=== PATIENT | male | born 1935 | race Caucasian/White ===

== ENCOUNTER 2017-07-01 12:51 | Inpatient (IN) | payer BC, OTHER ==
[2017-07-01] VITALS (10 sets, daily range): BP systolic 93–116
[~2017-07-01] VITALS: Ht 185.4 cm; Wt 106.6 kg
[~2017-07-01 12:51] MED LIST: ATENOLOL PO; PANT20TA2 PO
[2017-07-01] MEDS ORDERED: ASPIRIN 325 MG TABLET PO ONE ×2 (13:15→13:45)
[2017-07-01 13:23] LABS: BASOPHILS % (AUTO) 0.4 % (0.0-2.0); EOSINOPHILS # (AUTO) 0.1 K/uL (0.0-0.4); EOSINOPHILS % (AUTO) 0.9 % (0.0-4.0); HEMOGLOBIN 16.4 g/dL (14.0-18.0); LYMPHOCYTES # (AUTO) 2.1 K/uL (1.0-5.5); LYMPHOCYTES % (AUTO) 21.8 % (20.5-51.5); MEAN CORPUSCULAR HEMOGLOBIN 31 pg (27-31); MEAN CORPUSCULAR HGB CONC 33 % (32-36); MEAN CORPUSCULAR VOLUME 93 fL (79.0-98.0); MONOCYTES # (AUTO) 0.9 K/uL (0.0-1.0); NEUTROPHILS # (AUTO) 6.3 K/uL (1.8-7.7); NEUTROPHILS % (AUTO) 66.9 % (40.0-70.0); PLATELET COUNT (AUTO) 156 K/uL (130-430); RED BLOOD CELL COUNT(AUTO) 5.38 MIL/uL (4.2-6.2); RED CELL DISTRIBUTION WIDTH 13.8 % (9.0-15.0); WHITE BLOOD COUNT (AUTO) 9.4 K/uL (4.8-10.8)
[2017-07-01 13:37] LABS: INR 1.2 (0.80-1.20); PROTHROMBIN TIME 12.5 SECS (9.5-12.5)
[2017-07-01 13:38] LABS: ANION GAP 11 (5-15); CHLORIDE 102 mmol/L (98-107); CREATININE 1.69 mg/dL (0.55-1.30); GLUCOSE 196 mg/dL (70-99); POTASSIUM 3.7 mmol/L (3.5-5.1); SODIUM SERUM 136 mmol/L (136-145); UREA NITROGEN, BLOOD 22 mg/dL (8-21)
[2017-07-01 13:42] LABS: ALANINE AMINOTRANSFERASE 24 U/L (12-78); ALBUMIN 3.5 g/dL (3.4-4.8); ASPARTATE AMINOTRANSFERASE 14 U/L (10-37); CHOLESTEROL 141 mg/dL (<200); CREATINE KINASE, TOTAL 47 U/L (39-308); HDL CHOLESTEROL 46 mg/dL (>45); LDL CHOLESTEROL 76 mg/dL (<100); TOTAL BILIRUBIN 1.3 mg/dL (0.0-1.0); TOTAL PROTEIN, SERUM 7.6 g/dL (6.4-8.3); TRIGLYCERIDES 132 mg/dL (30-150)
[2017-07-01 14:07] LABS: BILIRUBIN,URINE 1+ (NEGATIVE); BLOOD, URINE NEGATIVE (NEGATIVE); CLARITY/URINE HAZY (CLEAR); COLOR,URINE AMBER (YELLOW); GLUCOSE,URINE NEGATIVE (NEGATIVE); KETONES,URINE TRACE (NEGATIVE); LEUKOCYTE ESTERASE ,URINE 1+ (NEGATIVE); NITRITE, URINE NEGATIVE (NEGATIVE); PROTEIN URINE TRACE (NEGATIVE)
[2017-07-01 15:07] LABS: RBC,URINE NONE SEEN /HPF (0-3)
[2017-07-01 15:08] LABS: BACTERIA,URINE FEW /HPF (None Seen); COARSE GRANULAR CASTS,URINE 0-10 /LPF (None Seen); HYALINE CASTS, URINE 30-50 /LPF (None Seen); MUCUS,URINE 1+ /LPF (None Seen)
[2017-07-01] MEDS ORDERED: LIP10 PO (15:41)
[2017-07-01] MEDS ORDERED: cefTRIAXone 1 GM in D5W 50 ML IV ONE (15:45)
[2017-07-01] MEDS ORDERED: cefTRIAXone 1 GM VIAL ONE (15:51)
[2017-07-01 16:00] LABS: BLOOD GAS PH 7.424 (7.350-7.450)
[2017-07-01 16:01] LABS: ABG TOTAL HEMOGLOBIN 14.7 G/dL (12.0-18.0); BLOOD GAS BASE EXCESS -0.5 mmol/L (-3.0-3.0); BLOOD GAS COHb% 1.2 % (0.5-1.5); BLOOD GAS HHB 3.1 % (0.0-6.0); BLOOD O2Hb% 95.5 % (94.0-97.0)
[2017-07-01] MEDS ORDERED: NACL 0.9% 1,000 ML IV ONE (16:15)
[2017-07-01] MEDS ORDERED: *HEPARIN PER PHARMACY XX ONE (16:15)
[2017-07-01] MEDS: NACL 0.9% 1,000 ML IV SCH (18:33)
[2017-07-01] MEDS ORDERED: HEPARIN 25,000 UNITS in 250 ML PREMIX IV PRN (20:00)
[2017-07-01] MEDS ORDERED: HEPARIN SODIUM,PORCINE 5000 UNITS/ML VIAL IVP ONE (20:00)
[2017-07-01] MEDS ORDERED: HEPARIN SODIUM,PORCINE 3000 UNITS/0.6 ML BOLUS IVP PRN (20:00)
[2017-07-01] MEDS ORDERED: HEPARIN SODIUM,PORCINE 2000 UNITS/0.4 ML BOLUS IVP PRN (20:00)
[2017-07-01 21:31] LABS: ANION GAP 7 (5-15); CALCIUM 8.4 mg/dL (8.4-11.0); CHLORIDE 108 mmol/L (98-107); CREATININE 1.38 mg/dL (0.55-1.30); GLUCOSE 122 mg/dL (70-99); POTASSIUM 3.8 mmol/L (3.5-5.1); SODIUM SERUM 141 mmol/L (136-145); UREA NITROGEN, BLOOD 24 mg/dL (8-21)
[2017-07-02] VITALS (19 sets, daily range): BP systolic 90–144
[2017-07-02] MEDS: NACL 0.9% 1,000 ML IV SCH ×3 (01:20→18:00)
[2017-07-02 07:10] LABS: BASOPHILS % (AUTO) 0.6 % (0.0-2.0); EOSINOPHILS # (AUTO) 0.1 K/uL (0.0-0.4); EOSINOPHILS % (AUTO) 2.6 % (0.0-4.0); HEMATOCRIT 40.4 % (36-54); HEMOGLOBIN 13.7 g/dL (14.0-18.0); LYMPHOCYTES # (AUTO) 1.6 K/uL (1.0-5.5); LYMPHOCYTES % (AUTO) 28.9 % (20.5-51.5); MEAN CORPUSCULAR HEMOGLOBIN 32 pg (27-31); MEAN CORPUSCULAR HGB CONC 34 % (32-36); MEAN CORPUSCULAR VOLUME 94 fL (79.0-98.0); MONOCYTES # (AUTO) 0.5 K/uL (0.0-1.0); NEUTROPHILS # (AUTO) 3.2 K/uL (1.8-7.7); NEUTROPHILS % (AUTO) 58.9 % (40.0-70.0); PLATELET COUNT (AUTO) 112 K/uL (130-430); RED BLOOD CELL COUNT(AUTO) 4.31 MIL/uL (4.2-6.2); RED CELL DISTRIBUTION WIDTH 13.9 % (9.0-15.0); WHITE BLOOD COUNT (AUTO) 5.4 K/uL (4.8-10.8)
[2017-07-02] MEDS: PANTOPRAZOLE SODIUM 40 MG TAB PO SCH (08:28)
[2017-07-02] MEDS: ASPIRIN 81 MG TAB.CHEW PO SCH (08:28)
[2017-07-02] MEDS ORDERED: ACETYLCYSTEINE 20% 800 MG/4 ML VIAL (ORAL) PO SCH (09:00)
[2017-07-02] MEDS: cefTRIAXone 1 GM in D5W 50 ML IV SCH (09:54)
[2017-07-02 14:02] LABS: CALCIUM 7.9 mg/dL (8.4-11.0); CREATININE 1.22 mg/dL (0.55-1.30); GLUCOSE 113 mg/dL (70-99); UREA NITROGEN, BLOOD 21 mg/dL (8-21)
[2017-07-02 14:13] LABS: ALANINE AMINOTRANSFERASE 15 U/L (12-78); ALBUMIN 2.2 g/dL (3.4-4.8); ASPARTATE AMINOTRANSFERASE 16 U/L (10-37); TOTAL BILIRUBIN 0.5 mg/dL (0.0-1.0); TOTAL PROTEIN, SERUM 6.2 g/dL (6.4-8.3)
[2017-07-02 14:19] LABS: ANION GAP 7 (5-15); CHLORIDE 108 mmol/L (98-107); POTASSIUM 4.7 mmol/L (3.5-5.1); SODIUM SERUM 142 mmol/L (136-145)
[2017-07-02] MEDS ORDERED: IOHEXOL 350 mgI/mL, 150 ML INFUS..BTL IV ONE (19:04)
[2017-07-03 00:56] VITALS: BP_SYST 104
[2017-07-03 04:20] VITALS: BP_SYST 105
[2017-07-03 04:24] VITALS: BP_SYST 112
[2017-07-03 06:24] LABS: BASOPHILS % (AUTO) 0.5 % (0.0-2.0); EOSINOPHILS # (AUTO) 0.2 K/uL (0.0-0.4); EOSINOPHILS % (AUTO) 2.5 % (0.0-4.0); HEMATOCRIT 43.1 % (36-54); HEMOGLOBIN 14.3 g/dL (14.0-18.0); LYMPHOCYTES # (AUTO) 1.3 K/uL (1.0-5.5); LYMPHOCYTES % (AUTO) 20.7 % (20.5-51.5); MEAN CORPUSCULAR HEMOGLOBIN 31 pg (27-31); MEAN CORPUSCULAR HGB CONC 33 % (32-36); MEAN CORPUSCULAR VOLUME 94 fL (79.0-98.0); MONOCYTES # (AUTO) 0.5 K/uL (0.0-1.0); MONOCYTES % (AUTO) 8.1 % (1.7-9.3); NEUTROPHILS # (AUTO) 4.2 K/uL (1.8-7.7); NEUTROPHILS % (AUTO) 68.2 % (40.0-70.0); PLATELET COUNT (AUTO) 121 K/uL (130-430); RED BLOOD CELL COUNT(AUTO) 4.58 MIL/uL (4.2-6.2); RED CELL DISTRIBUTION WIDTH 13.9 % (9.0-15.0); WHITE BLOOD COUNT (AUTO) 6.2 K/uL (4.8-10.8)
[2017-07-03 06:33] LABS: ALANINE AMINOTRANSFERASE 18 U/L (12-78); ALBUMIN 2.6 g/dL (3.4-4.8); ANION GAP 5 (5-15); ASPARTATE AMINOTRANSFERASE 21 U/L (10-37); CHLORIDE 110 mmol/L (98-107); GLUCOSE 89 mg/dL (70-99); POTASSIUM 4.2 mmol/L (3.5-5.1); SODIUM SERUM 139 mmol/L (136-145); TOTAL BILIRUBIN 0.5 mg/dL (0.0-1.0); UREA NITROGEN, BLOOD 17 mg/dL (8-21)
[2017-07-03 08:27] VITALS: BP_SYST 122
[2017-07-03] MEDS: cefTRIAXone 1 GM in D5W 50 ML IV SCH (08:46)
[2017-07-03] MEDS: ASPIRIN 81 MG TAB.CHEW PO SCH (09:58)
[2017-07-03] MEDS: PANTOPRAZOLE SODIUM 40 MG TAB PO SCH (09:58)
[2017-07-03] MEDS ORDERED: NITR-85 PO (10:30)
[2017-07-03 12:33] VITALS: BP_SYST 134
[2017-07-03 12:42] VITALS: BP_SYST 124
== END 2017-07-03 13:40 | disposition home or self-care (01) | DRG 871 ==
LOC: SED 12:51 → SIC 16:05 → STU 07-02 16:41
DX: A41.9 Sepsis, unspecified organism (principal); N17.0 Acute kidney failure with tubular necrosis; J44.1 Chronic obstructive pulmonary disease with (acute) exacerbation; N39.0 Urinary tract infection, site not specified; J44.9 Chronic obstructive pulmonary disease, unspecified; I95.9 Hypotension, unspecified; N28.9 Disorder of kidney and ureter, unspecified; I10 Essential (primary) hypertension; M19.90 Unspecified osteoarthritis, unspecified site; E78.5 Hyperlipidemia, unspecified; Z88.6 Allergy status to analgesic agent; Z79.899 Other long term (current) drug therapy; Z90.49 Acquired absence of other specified parts of digestive tract; Z86.711 Personal history of pulmonary embolism
CPT/HCPCS: 36415; 36600; 71010; 71250-TC; 71275; 78579; 78580-TC; 80048; 80053; 80061; 81000-TC; 82550-TC; 82803-TC; 83605; 83880; 84302-TC; 84484; 85025; 85379; 85610-TC; 85730-TC; 87081; 87086; 93005; 93306; 96361; 96365; 99291; A9539; A9540; C1751; J0696; J1644; J7030; J7060; Q9967

== ENCOUNTER 2019-05-11 13:20 | Emergency (ER) | payer OTHER ==
[~2019-05-11] VITALS: Ht 185.4 cm; Wt 111.1 kg
[2019-05-11 13:20] VITALS: BP_SYST 109
[~2019-05-11 13:20] MED LIST changes: +LIP10 PO; +NITR-85 PO
[2019-05-11 14:27] LABS: BASOPHILS # (AUTO) 0.1 K/uL (0.0-0.2); BASOPHILS % (AUTO) 0.7 % (0.0-2.0); EOSINOPHILS # (AUTO) 0.1 K/uL (0.0-0.4); EOSINOPHILS % (AUTO) 1.9 % (0.0-4.0); HEMATOCRIT 46.8 % (36-54); HEMOGLOBIN 15.9 g/dL (14.0-18.0); LYMPHOCYTES # (AUTO) 1.4 K/uL (1.0-5.5); LYMPHOCYTES % (AUTO) 18.1 % (20.5-51.5); MEAN CORPUSCULAR HEMOGLOBIN 32 pg (27-31); MEAN CORPUSCULAR HGB CONC 34 % (32-36); MEAN CORPUSCULAR VOLUME 95 fL (79.0-98.0); MONOCYTES # (AUTO) 0.9 K/uL (0.0-1.0); MONOCYTES % (AUTO) 11.2 % (1.7-9.3); NEUTROPHILS # (AUTO) 5.3 K/uL (1.8-7.7); NEUTROPHILS % (AUTO) 68.1 % (40.0-70.0); PLATELET COUNT (AUTO) 144 K/uL (130-430); RED BLOOD CELL COUNT(AUTO) 4.94 MIL/uL (4.2-6.2); RED CELL DISTRIBUTION WIDTH 14.4 % (9.0-15.0); WHITE BLOOD COUNT (AUTO) 7.8 K/uL (4.8-10.8)
[2019-05-11 14:36] LABS: ANION GAP 8 (5-15); CALCIUM 9.1 mg/dL (8.4-11.0); CHLORIDE 106 mmol/L (98-107); CREATININE 1.28 mg/dL (0.55-1.30); GLUCOSE 98 mg/dL (70-99); POTASSIUM 4.1 mmol/L (3.5-5.1); SODIUM SERUM 138 mmol/L (136-145); UREA NITROGEN, BLOOD 20 mg/dL (8-21)
[2019-05-11 14:40] LABS: ALANINE AMINOTRANSFERASE 25 U/L (12-78); ALBUMIN 3.2 g/dL (3.4-4.8); ASPARTATE AMINOTRANSFERASE 16 U/L (10-37); C-REACTIVE PROTEIN QUANT 0.4 mg/dL (0-0.5); TOTAL BILIRUBIN 0.7 mg/dL (0.0-1.0)
[2019-05-11 15:35] VITALS: BP_SYST 109
== END 2019-05-11 15:35 | disposition home or self-care (01) ==
LOC: SED 13:20
DX: H00.035 Abscess of left lower eyelid (principal); J44.9 Chronic obstructive pulmonary disease, unspecified; Z86.79 Personal history of other diseases of the circulatory system; Z88.6 Allergy status to analgesic agent; Z79.899 Other long term (current) drug therapy
CPT/HCPCS: 36415; 80053; 85025; 86140; 99283

== ENCOUNTER 2024-02-01 13:31 | Inpatient (IN) | payer OTHER ==
[~2024-02-01] VITALS: Ht 185.4 cm; Wt 98.4 kg
[~2024-02-01 13:31] MED LIST changes: +APIX2.5T PO; +ASCO500T20 PO; +ATEN-41 PO; -ATENOLOL PO; +CHOL500013 PO; +DEC4 PO; +DEXA6TAB5 PO; +LEVO-62 PO; -LIP10 PO; -NITR-85 PO
[2024-02-01 13:34] VITALS: BP_SYST 94; PULSE 62; RESP 24; TEMP 98.2; O2SAT 89
[2024-02-01 14:38] LABS: EOSINOPHILS % (AUTO) 0.1 % (0.0-4.0); LYMPHOCYTES # (AUTO) 0.5 K/uL (1.0-5.5); WHITE BLOOD COUNT (AUTO) 11.6 K/uL (4.8-10.8)
[2024-02-01 14:45] LABS: BASOPHILS % (AUTO) 0.2 % (0.0-2.0); HEMATOCRIT 46.8 % (36-54); HEMOGLOBIN 15.7 g/dL (14.0-18.0); LYMPHOCYTES % (AUTO) 4.4 % (20.5-51.5); MEAN CORPUSCULAR HEMOGLOBIN 32 pg (27-31); MEAN CORPUSCULAR HGB CONC 34 % (32-36); MEAN CORPUSCULAR VOLUME 97 fL (79.0-98.0); MONOCYTES # (AUTO) 1.3 K/uL (0.0-1.0); MONOCYTES % (AUTO) 11.2 % (1.7-9.3); NEUTROPHILS # (AUTO) 9.8 K/uL (1.8-7.7); NEUTROPHILS % (AUTO) 84.1 % (40.0-70.0); PLATELET COUNT (AUTO) 176 K/uL (130-430); RED BLOOD CELL COUNT(AUTO) 4.85 MIL/uL (4.2-6.2)
[2024-02-01 14:47] LABS: ANION GAP 13 (5-15); CALCIUM 9.6 mg/dL (8.4-11.0); CARBON DIOXIDE 21 mmol/L (23-29); CHLORIDE 100 mmol/L (98-107); CREATININE 2.05 mg/dL (0.55-1.30); GLUCOSE 129 mg/dL (74-106); POTASSIUM 4.7 mmol/L (3.5-5.1); SODIUM SERUM 134 mmol/L (136-145); UREA NITROGEN, BLOOD 34 mg/dL (8-21)
[2024-02-01] MEDS: IPRATROPIUM/ALBUTEROL SULFATE 3 ML AMPUL.NEB (DUONEB) INH ONE ×2 (14:49→16:31)
[2024-02-01] MEDS: methylPREDNISolone SOD SUCC/PF 62.5 MG/ML VIAL IVP ONE (15:14)
[2024-02-01] MEDS: cefTRIAXone 1 GM IVPB PREMIX 50 ML IV ONE (15:24)
[2024-02-01] MEDS: ACETAMINOPHEN 325 MG TABLET PO ONE (15:24)
[2024-02-01] MEDS ORDERED: AZITHROMYCIN 500 MG/VIAL (ZITHROMAX) IV ONE (15:59)
[2024-02-01] MEDS: AZITHROMYCIN 500 MG in NS 250 ML IV ONE (16:01)
[2024-02-01] MEDS: NACL 0.9% 2,000 ML IV ONE (16:01)
[2024-02-01] MEDS: NS 500 ML IV ONE (16:01)
[2024-02-01 16:34] LABS: COVID19 ANTIGEN SOFIA FIA NEGATIVE (NEGATIVE)
[2024-02-01 16:35] LABS: INFLUENZA TYPE A Negative (NEGATIVE); INFLUENZA TYPE B NEGATIVE (NEGATIVE)
[2024-02-01 17:35] VITALS: PULSE 90; O2SAT 97
[2024-02-01] MEDS: 0.45% NACL 1,000 ML IV SCH (17:40)
[2024-02-01] MEDS ORDERED: ALBU10.7 INH (19:28)
[2024-02-01] MEDS ORDERED: GLYC10.7 INH (19:28)
[2024-02-01] MEDS ORDERED: IPRA3AMP9 HHN (19:28)
[2024-02-01] MEDS ORDERED: SILD100T70 PO (19:28)
[2024-02-01] MEDS: ALBUTEROL SULFATE 0.083% 2.5 MG/3 ML VIAL.NEB INH SCH (20:17)
[2024-02-01 20:30] VITALS: BP_SYST 99; PULSE 96; RESP 20; TEMP 98.2; O2SAT 92
[2024-02-01 20:31] VITALS: O2SAT 92
[2024-02-01 20:41] VITALS: BP_SYST 99; PULSE 96; RESP 20; TEMP 98.2
[2024-02-01] MEDS: METHYLPREDNISOLONE SOD SUCC 40 MG/ML VIAL IVP SCH (22:04)
[2024-02-02] VITALS (12 sets, daily range): BP systolic 96–117; PULSE 70–90; RESP 16–19; TEMP 97.1–98.7; O2SAT 88–93
[2024-02-02] MEDS: cefTRIAXone 1 GM IVPB PREMIX 50 ML IV SCH (14:46)
[2024-02-02] MEDS ORDERED: cefTRIAXone 1 GM IVPB PREMIX 50 ML IV SCH (15:00)
[2024-02-02] MEDS ORDERED: AZITHROMYCIN 500 MG in NS 250 ML IV SCH (17:00)
[2024-02-02] MEDS: AZITHROMYCIN 500 MG in NS 250 ML IV SCH (17:33)
[2024-02-03] VITALS (12 sets, daily range): BP systolic 104–127; PULSE 79–90; RESP 18–20; TEMP 97.3–98.6; O2SAT 20–98
[2024-02-03 05:51] LABS: BASOPHILS % (AUTO) 0.1 % (0.0-2.0); HEMATOCRIT 39.8 % (36-54); HEMOGLOBIN 13.6 g/dL (14.0-18.0); LYMPHOCYTES # (AUTO) 0.5 K/uL (1.0-5.5); LYMPHOCYTES % (AUTO) 4.7 % (20.5-51.5); MEAN CORPUSCULAR HEMOGLOBIN 33 pg (27-31); MEAN CORPUSCULAR HGB CONC 34 % (32-36); MEAN CORPUSCULAR VOLUME 96 fL (79.0-98.0); MONOCYTES # (AUTO) 0.4 K/uL (0.0-1.0); MONOCYTES % (AUTO) 3.8 % (1.7-9.3); NEUTROPHILS # (AUTO) 9.6 K/uL (1.8-7.7); NEUTROPHILS % (AUTO) 91.4 % (40.0-70.0); PLATELET COUNT (AUTO) 185 K/uL (130-430); RED BLOOD CELL COUNT(AUTO) 4.16 MIL/uL (4.2-6.2); RED CELL DISTRIBUTION WIDTH 15.2 % (9.0-15.0); WHITE BLOOD COUNT (AUTO) 10.5 K/uL (4.8-10.8)
[2024-02-03 05:54] LABS: ANION GAP 11 (5-15); CALCIUM 9.1 mg/dL (8.4-11.0); CARBON DIOXIDE 21 mmol/L (23-29); CHLORIDE 104 mmol/L (98-107); CREATININE 1.32 mg/dL (0.55-1.30); GLUCOSE 204 mg/dL (74-106); POTASSIUM 4.2 mmol/L (3.5-5.1); SODIUM SERUM 136 mmol/L (136-145); UREA NITROGEN, BLOOD 37 mg/dL (8-21)
[2024-02-03] MEDS ORDERED: NEOMYCIN/POLYMYX B/HYDROCORTISONE 10 ML EAR DROPS.SUSP OT ONE (18:00)
[2024-02-03] MEDS ORDERED: NEOMYCIN/POLYMYX B/HYDROCORTISONE 10 ML OTIC SOLUTION OT SCH (21:00)
[2024-02-03] MEDS: NEOMYCIN/POLYMYX B/HYDROCORTISONE 10 ML EAR DROPS.SUSP OT SCH (21:47)
[2024-02-04] VITALS (13 sets, daily range): BP systolic 105–122; PULSE 78–93; RESP 16–18; TEMP 97.1–97.7; O2SAT 92–97
[2024-02-04] MEDS: ALBUTEROL SULFATE 0.083% 2.5 MG/3 ML VIAL.NEB INH PRN (13:49)
[2024-02-04] MEDS: guaiFENesin/DEXTROMETHORPHAN 10 ML UDC PO PRN (17:08)
[2024-02-05] VITALS (13 sets, daily range): BP systolic 99–147; PULSE 67–85; RESP 15–20; TEMP 96.5–99; O2SAT 92–96
[2024-02-05] MEDS: HEPARIN SODIUM,PORCINE 5,000 UNITS/ML VIAL SUBCUT SCH (21:20)
[2024-02-06] VITALS (13 sets, daily range): BP systolic 130–143; PULSE 77–84; RESP 18–22; TEMP 97.3–98.8; O2SAT 92–95
[2024-02-06 06:10] LABS: BASOPHILS % (AUTO) 0.1 % (0.0-2.0); EOSINOPHILS # (AUTO) 0.1 K/uL (0.0-0.4); HEMATOCRIT 44.4 % (36-54); LYMPHOCYTES # (AUTO) 0.6 K/uL (1.0-5.5); LYMPHOCYTES % (AUTO) 4.8 % (20.5-51.5); MEAN CORPUSCULAR HEMOGLOBIN 32 pg (27-31); MEAN CORPUSCULAR HGB CONC 34 % (32-36); MEAN CORPUSCULAR VOLUME 96 fL (79.0-98.0); MONOCYTES # (AUTO) 0.3 K/uL (0.0-1.0); MONOCYTES % (AUTO) 2.1 % (1.7-9.3); NEUTROPHILS # (AUTO) 12.1 K/uL (1.8-7.7); PLATELET COUNT (AUTO) 235 K/uL (130-430); RED BLOOD CELL COUNT(AUTO) 4.63 MIL/uL (4.2-6.2); RED CELL DISTRIBUTION WIDTH 15.2 % (9.0-15.0); WHITE BLOOD COUNT (AUTO) 13.2 K/uL (4.8-10.8)
[2024-02-06 06:24] LABS: ANION GAP 7 (5-15); CALCIUM 8.7 mg/dL (8.4-11.0); CARBON DIOXIDE 26 mmol/L (23-29); CHLORIDE 104 mmol/L (98-107); CREATININE 1.07 mg/dL (0.55-1.30); GLUCOSE 171 mg/dL (74-106); POTASSIUM 4.5 mmol/L (3.5-5.1); SODIUM SERUM 137 mmol/L (136-145); UREA NITROGEN, BLOOD 29 mg/dL (8-21)
[2024-02-06] MEDS: FLUCONAZOLE 200 mg/ NS 100 ML IV SCH (14:15)
[2024-02-06] MEDS: METHYLPREDNISOLONE SOD SUCC 40 MG/ML VIAL IVP SCH (21:11)
[2024-02-07] VITALS (11 sets, daily range): BP systolic 134–143; PULSE 73–80; RESP 15–20; TEMP 96.8–97.9; O2SAT 93–100
[2024-02-07 00:06] LABS: QUANTIFERON TB GOLD Indeterminate (Negative)
[2024-02-07 04:48] LABS: HEMATOCRIT 44.9 % (36-54); HEMOGLOBIN 15.2 g/dL (14.0-18.0); LYMPHOCYTES # (AUTO) 0.7 K/uL (1.0-5.5); LYMPHOCYTES % (AUTO) 5.2 % (20.5-51.5); MEAN CORPUSCULAR HEMOGLOBIN 32 pg (27-31); MEAN CORPUSCULAR HGB CONC 34 % (32-36); MEAN CORPUSCULAR VOLUME 95 fL (79.0-98.0); MONOCYTES # (AUTO) 0.3 K/uL (0.0-1.0); MONOCYTES % (AUTO) 2.2 % (1.7-9.3); NEUTROPHILS # (AUTO) 12.6 K/uL (1.8-7.7); NEUTROPHILS % (AUTO) 92.6 % (40.0-70.0); PLATELET COUNT (AUTO) 234 K/uL (130-430); RED BLOOD CELL COUNT(AUTO) 4.71 MIL/uL (4.2-6.2); RED CELL DISTRIBUTION WIDTH 14.9 % (9.0-15.0); WHITE BLOOD COUNT (AUTO) 13.6 K/uL (4.8-10.8)
[2024-02-07 05:12] LABS: ALANINE AMINOTRANSFERASE 63 U/L (12-78); ALBUMIN 2.3 g/dL (3.4-4.8); ANION GAP 5 (5-15); ASPARTATE AMINOTRANSFERASE 20 U/L (10-37); CALCIUM 8.6 mg/dL (8.4-11.0); CARBON DIOXIDE 27 mmol/L (23-29); CHLORIDE 102 mmol/L (98-107); CREATININE 1.01 mg/dL (0.55-1.30); GLUCOSE 180 mg/dL (74-106); POTASSIUM 4.5 mmol/L (3.5-5.1); SODIUM SERUM 134 mmol/L (136-145); TOTAL BILIRUBIN 0.5 mg/dL (0.0-1.0); UREA NITROGEN, BLOOD 30 mg/dL (8-21)
[2024-02-07 06:06] LABS: COCCIDIOIDES AB IGG 0.5 IV (<=0.9); COCCIDIOIDES AB IGM 0.5 IV (<=0.9)
[2024-02-07] MEDS: FUROSEMIDE 20 MG/2 ML VIAL IVP ONE (11:07)
[2024-02-07] MEDS: FUROSEMIDE 20 MG/2 ML VIAL IVP SCH (18:00)
[2024-02-07 19:06] LABS: MYCOPLASMA PNEUMONIAE IgM 904 U/mL (0-769)
[2024-02-08] VITALS (8 sets, daily range): BP systolic 121–135; PULSE 73–80; RESP 18; TEMP 96.6–98.3; O2SAT 93–98
[2024-02-08 05:39] LABS: ALANINE AMINOTRANSFERASE 51 U/L (12-78); ALBUMIN 2.2 g/dL (3.4-4.8); ANION GAP 8 (5-15); ASPARTATE AMINOTRANSFERASE 17 U/L (10-37); CALCIUM 8.5 mg/dL (8.4-11.0); CARBON DIOXIDE 29 mmol/L (23-29); CHLORIDE 101 mmol/L (98-107); CREATININE 1.19 mg/dL (0.55-1.30); GLUCOSE 187 mg/dL (74-106); POTASSIUM 4.3 mmol/L (3.5-5.1); SODIUM SERUM 138 mmol/L (136-145); TOTAL BILIRUBIN 0.5 mg/dL (0.0-1.0); TOTAL PROTEIN, SERUM 5.9 g/dL (6.4-8.3); UREA NITROGEN, BLOOD 35 mg/dL (8-21)
[2024-02-08 07:03] LABS: BASOPHILS % (AUTO) 0.1 % (0.0-2.0); EOSINOPHILS # (AUTO) 0.1 K/uL (0.0-0.4); EOSINOPHILS % (AUTO) 1.2 % (0.0-4.0); HEMATOCRIT 46.5 % (36-54); HEMOGLOBIN 15.6 g/dL (14.0-18.0); LYMPHOCYTES # (AUTO) 0.7 K/uL (1.0-5.5); LYMPHOCYTES % (AUTO) 5.5 % (20.5-51.5); MEAN CORPUSCULAR HEMOGLOBIN 32 pg (27-31); MEAN CORPUSCULAR HGB CONC 34 % (32-36); MEAN CORPUSCULAR VOLUME 95 fL (79.0-98.0); MONOCYTES # (AUTO) 0.3 K/uL (0.0-1.0); MONOCYTES % (AUTO) 2.1 % (1.7-9.3); NEUTROPHILS # (AUTO) 11.1 K/uL (1.8-7.7); NEUTROPHILS % (AUTO) 91.1 % (40.0-70.0); PLATELET COUNT (AUTO) 214 K/uL (130-430); RED BLOOD CELL COUNT(AUTO) 4.89 MIL/uL (4.2-6.2); RED CELL DISTRIBUTION WIDTH 14.9 % (9.0-15.0); WHITE BLOOD COUNT (AUTO) 12.2 K/uL (4.8-10.8)
[2024-02-08] MEDS ORDERED: AZITHROMYCIN 500 MG in NS 250 ML IV SCH (12:00)
[2024-02-08] MEDS ORDERED: METH-776 PO (12:43)
[2024-02-08] MEDS ORDERED: ZIT250 PO (12:43)
[2024-02-08] MEDS ORDERED: POTA8TAB66 PO (12:43)
[2024-02-08] MEDS ORDERED: FURO-150 PO (12:43)
== END 2024-02-08 15:40 | disposition home health service (06) | DRG 682 ==
LOC: SED 13:31 → SMU 15:53
PROVIDERS: ADMIT Specialist; ATTEND Specialist
DX: N17.9 Acute kidney failure, unspecified (principal); J18.9 Pneumonia, unspecified organism; J96.01 Acute respiratory failure with hypoxia; J44.1 Chronic obstructive pulmonary disease with (acute) exacerbation; J44.0 Chronic obstructive pulmonary disease with (acute) lower respiratory infection; E87.20 Acidosis, unspecified; E66.9 Obesity, unspecified; Z68.28 Body mass index [BMI] 28.0-28.9, adult; I50.9 Heart failure, unspecified; N18.32 Chronic kidney disease, stage 3b; I48.91 Unspecified atrial fibrillation; Z87.891 Personal history of nicotine dependence; Z79.01 Long term (current) use of anticoagulants; Z79.899 Other long term (current) drug therapy; Z88.5 Allergy status to narcotic agent; Z79.51 Long term (current) use of inhaled steroids
CPT/HCPCS: 36415; 71045; 76700; 80048; 80053; 82803; 83605; 83880; 84484; 85025; 86480; 86635; 86738; 87040; 87070; 87205; 87449; 93005; 93306; 94640; 94760; 97110-GP; 97116-GP; 97530-GP; 99291; J0456; J0696; J1030; J1450; J1644; J1940; J2930; J7050